=== PATIENT | female | born 1985 | race Two or more races ===

== ENCOUNTER 2018-11-04 05:10 | Inpatient (IN) | payer OTHER ==
[~2018-11-04] VITALS: Ht 149.9 cm; Wt 54.4 kg
[~2018-11-04 05:10] MED LIST: NAPR500T14 PO
== END 2018-11-05 11:13 | disposition home or self-care (01) | DRG 743 ==
LOC: CIR.AMB 05:10 → SURH 19:45
PROVIDERS: ADMIT Obstetrics & Gynecology
PROC: 0UBC8ZZ Excision of Cervix, Via Natural or Artificial Opening Endoscopic (ICD-10-PCS; 2018-11-04)
PROC: 0UB14ZZ Excision of Left Ovary, Percutaneous Endoscopic Approach (ICD-10-PCS; principal; 2018-11-04 09:45)
PROC: 0UDB8ZZ Extraction of Endometrium, Via Natural or Artificial Opening Endoscopic (ICD-10-PCS; 2018-11-04 09:45)
PROC: 0UBC4ZZ Excision of Cervix, Percutaneous Endoscopic Approach (ICD-10-PCS; 2018-11-04 09:45)
DX: N80.1 Endometriosis of ovary (principal); N84.0 Polyp of corpus uteri; N87.0 Mild cervical dysplasia; N83.292 Other ovarian cyst, left side